=== PATIENT | female | born 1985 | race Caucasian/White ===

== ENCOUNTER 2023-06-21 10:00 | Outpatient (RCR) | payer OTHER, SELFPAY | END 2023-06-21 13:00 | disposition home or self-care (01) | LOC: HO.PTCHIC 10:00 | PROVIDERS: PCP Internal Medicine; Visit Provider Physician Assistant | DX: M62.81 Muscle weakness (generalized) (principal) | CPT/HCPCS: 97110; 97140; 97161; 97530 ==